=== PATIENT | male | born 1985 | race Caucasian/White ===

== ENCOUNTER 2022-07-09 15:34 | Emergency (ER) | payer BC, MEDICAID ==
[~2022-07-09] VITALS: Ht 175.3 cm; Wt 81.6 kg
--- NOTE | 2022-07-09 16:26 | NUR ---
Patient AOx4, able to express his concerns. Patient states he has been experiencing low abdomen, pelvic and testicular pain for 3 weeks. Discussed plan of care, patient verbalized agreement. All safety precautions taken.
--- NOTE | 2022-07-09 16:27 | NUR ---
Blood collected, sent to the lab.
[2022-07-09 17:04] LABS: BASOPHILS # (AUTO) 0.1 K/uL (0.0-0.2); EOSINOPHILS % (AUTO) 2.8 % (0.0-6.0); HEMATOCRIT 48 % (39-51); HEMOGLOBIN 15.6 g/dL (13.5-17.5); LYMPHOCYTES # (AUTO) 2.1 K/uL (0.8-4.8); LYMPHOCYTES % (AUTO) 25.6 % (20.0-44.0); MEAN CORPUSCULAR HGB CONC 33 g/dl (31.0-36.0); MEAN CORPUSCULAR VOLUME 88 fL (80-96); MONOCYTES # (AUTO) 0.6 K/uL (0.1-1.30); MONOCYTES % (AUTO) 6.9 % (2.0-12.0); NEUTROPHILS # (AUTO) 5.3 K/uL (1.8-8.9); NEUTROPHILS % (AUTO) 63.7 % (43.0-81.0); PLATELET COUNT (AUTO) 284 K/uL (150-450); RED BLOOD CELL COUNT(AUTO) 5.42 MIL/uL (4.5-6.0); WHITE BLOOD COUNT (AUTO) 8.4 K/uL (4.3-11.0)
[2022-07-09 17:13] LABS: CALCIUM, SERUM 9.4 mg/dL (8.5-10.1); CREATININE 0.9 mg/dL (0.6-1.3); POTASSIUM 4.1 mmol/L (3.5-5.1)
[2022-07-09 17:15] LABS: BILIRUBIN,URINE NEGATIVE (NEGATIVE); COLOR,URINE YELLOW (YELLOW); LEUKOCYTE ESTERASE ,URINE NEGATIVE (NEGATIVE); NITRITE, URINE NEGATIVE (NEGATIVE); PROTEIN,URINE NEGATIVE (NEGATIVE); UGLUCOSE NEGATIVE (NEGATIVE); UROBILINOGEN,URINE 0.2 EU/dL (0.2)
[2022-07-09 17:20] LABS: ALBUMIN 4.3 g/dL (3.4-5.0); BILIRUBIN,DIRECT 0.1 mg/dL (0.0-0.2); BILIRUBIN,TOTAL 0.5 mg/dL (0.2-1.0); TOTAL PROTEIN, SERUM 7.5 g/dL (6.4-8.2)
--- NOTE | 2022-07-09 19:16 | NUR ---
Discharge paperwork signed, pending radiology cd. Patient verbalized agreement.
--- NOTE | 2022-07-09 19:29 | NUR ---
Patient discharged to home in stable condition. Written and verbal after care instructions given. Patient verbalizes understanding of instruction.
[2022-07-09 19:30] VITALS: BP 120/80
== END 2022-07-09 19:30 | disposition home or self-care (01) ==
LOC: ER 15:37
DX: K40.20 Bilateral inguinal hernia, without obstruction or gangrene, not specified as recurrent (principal); R10.30 Lower abdominal pain, unspecified; N50.3 Cyst of epididymis
CPT/HCPCS: 36415; 76870-TC; 80048-TC; 80076-TC; 83690-TC; 85025-TC; 87491; 87591